=== PATIENT | female | born 1935 | race Caucasian/White ===

== ENCOUNTER 2016-05-08 08:56 | Observation (INO) | payer MEDICARE, BC ==
[~2016-05-08] VITALS: Ht 162.6 cm; Wt 74.0 kg
[~2016-05-08 08:56] MED LIST: FURO-109 PO
[2016-05-08] MEDS ORDERED: CEFTRIAXONE 1 GM/50 ML (PMX) 50 ML IVPB STA (09:28)
[2016-05-08] MEDS ORDERED: AZITHROMYCIN 250 MG TAB PO STA (09:28)
[2016-05-08] MEDS ORDERED: SOD CHLORIDE 0.9% 1,000 ML IV STA (09:28)
[2016-05-08 10:23] LABS: BASOPHILS % 0.5 % (0.0-2.0); EOSINOPHILS # 0.2 10^3/ul (0.0-0.5); EOSINOPHILS % 3.8 % (0.0-7.0); HEMATOCRIT 35.2 % (37.0-47.0); HEMOGLOBIN 11.6 g/dl (12.0-16.0); LYMPHOCYTES # 1.5 10^3/ul (0.8-2.9); LYMPHOCYTES % 25.8 % (15.0-51.0); MEAN PLATELET VOLUME 10.7 fl (7.4-10.4); MONOCYTE # 0.7 10^3/ul (0.3-0.9); MONOCYTES % 12.8 % (0.0-11.0); NEUTROPHIL # 3.3 10^3/ul (1.6-7.5); NEUTROPHILS % 57.1 % (39.0-77.0); PLATELET COUNT 170 10^3/UL (140-440); RED BLOOD COUNT 3.75 10^6/ul (4.20-5.40); RED CELL DISTRIBUTION WIDTH 16.8 % (11.5-14.5); UNCORRECTED WBC 5.8 10^3/ul (4.8-10.8); WHITE BLOOD COUNT 5.8 10^3/ul (4.8-10.8)
[2016-05-08 10:24] LABS: ALBUMIN 3.5 g/dl (3.3-4.9)
[2016-05-08 10:25] LABS: POTASSIUM 3.9 mmol/L (3.5-5.1)
[2016-05-08 10:26] LABS: CONDITION 1; LH ANALYZER COMMENTS 1
[2016-05-08 10:27] LABS: ALBUMIN/GLOBULIN RATIO 1.12; BILIRUBIN,INDIRECT 0.7 mg/dl (0-1.1); BILIRUBIN,TOTAL 0.7 mg/dl (0.2-1.3); CREATININE 0.98 mg/dl (0.44-1.00); TOTAL PROTEIN 6.6 g/dl (6.1-8.1)
[2016-05-08] MEDS ORDERED: AZITHROMYCIN 250 MG in SOD CHLORIDE 0.9% 250 ML IVPB SCH (10:30)
[2016-05-08] MEDS ORDERED: AZITHROMYCIN 500 MG in SOD CHLORIDE 0.9% 250 ML IVPB SCH (10:30)
[2016-05-08] MEDS ORDERED: RIVA20TA PO (10:34)
[2016-05-08] MEDS ORDERED: LOSA25TA5 PO (10:35)
[2016-05-08] MEDS ORDERED: CHOL100062 PO (10:35)
[2016-05-08] MEDS ORDERED: OMEG1CAP2 PO (10:36)
[2016-05-08] MEDS ORDERED: MAGN400T28 PO (10:37)
[2016-05-08] MEDS ORDERED: LEFL20TA18 PO (10:39)
[2016-05-08] MEDS ORDERED: ATOR10TA65 PO (10:39)
[2016-05-08] MEDS ORDERED: POTA8CAP PO (10:39)
[2016-05-08] MEDS ORDERED: CARV12.579 PO (10:39)
--- NOTE | 2016-05-08 11:00 | RADRPT ---
PROCEDURE: XR Chest. CLINICAL INDICATION: Dyspnea TECHNIQUE: Single frontal chest x-ray. COMPARISON: 03/14/2016 FINDINGS: No acute infiltrate, pleural effusion or pneumothorax is identified. There is stable mild to modera te cardiomegaly. Aortic atherosclerotic calcifications are noted. The osseous structures are unrem arkable. IMPRESSION: 1. Stable mild to moderate cardiomegaly. 2. Aortic atherosclerosis. 3. No significant interval change. RPTAT: QQ .Mainor Underwood MD, Date Time Electronically viewed and signed by .Mainor Underwood MD, on 05/08/2016 11:00 .R/
[2016-05-08] MEDS ORDERED: AZITHROMYCIN 500MG/NS (PMX) 250 ML IV ONE (12:00)
[2016-05-08] MEDS ORDERED: IPRATROPIUM (NEB) 0.5 MG/2.5 ML AMP NEB STA (12:54)
[2016-05-08] MEDS ORDERED: ALBUTEROL 0.5% (NEB) 2.5 MG/0.5 ML AMP NEB STA (12:54)
--- NOTE | 2016-05-08 14:18 | ERA ---
ER Documentation Chief Complaint Date/Time DATE: 05/08/16 TIME: 14:15 Chief Complaint from home c/o sob,cough HPI This is a 81-year-old female complains of cough for 4 days with occasional white productive sputum and some shortness of breath off-and-on without wheezing. Denies any chest pain. She does not have a fever no vomiting diarrhea but she does have general malaise weakness and lack of appetite. The patient's family said that she is seeing her primary care physician a few days ago and was told to go to the ER if she got any worse. ROS All systems reviewed and are negative except as per history of present illness. Medications Home Meds Active Scripts Furosemide* (Lasix*) 40 Mg Tablet, 40 MG PO DAILY, #20 TAB Prov:RE RODGERS 03/14/16 Reported Medications Carvedilol* (Carvedilol*) 12.5 Mg Tablet, 12.5 MG PO BID, #60 TAB 05/08/16 Leflunomide* (Leflunomide*) 20 Mg Tablet, 20 MG PO DAILY, #30 TAB 05/08/16 Atorvastatin Calcium (Atorvastatin Calcium) 10 Mg Tablet, 10 MG PO QHS, #30 TAB 05/08/16 Potassium Chloride* (Potassium Chloride*) 8 Meq Capsule.er, 8 MEQ PO DAILY, CAP 05/08/16 Magnesium Oxide* (Magnesium Oxide*) 400 Mg Tablet, 400 MG PO DAILY, TAB 05/08/16 Guthrie-3 Acid Ethyl Esters (Lovaza) 1 Gm Capsule, 2 GM PO DAILY, CAP 05/08/16 Losartan Potassium* (Losartan Potassium*) 25 Mg Tablet, 75 MG PO DAILY, TAB 05/08/16 Cholecalciferol* (Vitamin D3*) 1,000 Unit Tablet, 1000 UNIT PO DAILY, TAB 05/08/16 Rivaroxaban* (Xarelto*) 20 Mg Tablet, 20 MG PO WITH DINNER, TAB 05/08/16 Allergies Allergies: Coded Allergies: No Known Allergy (Unverified , 03/13/16) PMhx/Soc History of Surgery: No (bilateral cataract surgery 6-10 years ago) Anesthesia Reaction: No Hx Neurological Disorder: No Hx Respiratory Disorders: No Hx Cardiac Disorders: Yes (HTN, A-fib, ) Hx Psychiatric Problems: No Hx Alcohol Use: No Hx Substance Use: No Hx Tobacco Use: No Smoking Status: Never smoker FmHx Family History: No coronary disease Physical Exam Vitals Vital Signs Date Time Temp Pulse Resp B/P Pulse Ox O2 Delivery O2 Flow Rate FiO2 05/08/16 13:44 52 20 99 21 05/08/16 12:03 53 20 153/57 99 Room Air 05/08/16 09:06 98.1 50 18 131/70 99 Physical Exam Const: Well-developed, well-nourished, slightly ill-appearing Head: Atraumatic, normocephalic Eyes: Normal Conjunctiva, PERRLA, EOMI, normal sclera, no nystagmus ENT: Normal External Ears, Nose and Mouth, moist mucus membranes. Neck: Full range of motion. No meningismus, no lymphadenopathy. Resp: Clear to auscultation bilaterally, no wheezing, rhonchi, rales Cardio: Regular rate and rhythm, no murmurs, S1 S2 present Abd: Soft, non tender x 4, non distended. Normal bowel sounds, no guarding or rebound, no pulsitile abdominal masses or bruits Skin: No petechiae or rashes, no ecchymosis , no maculopapular rash Back: No midline or flank tenderness Ext: No cyanosis, or edema, FROM x 4, normal inspection, neurovascularly intact x 4 Neur: Awake and alert, STR 5/5 x 4, sensation intact x 4, no focal findings, cerebellum intact Psych: Normal Mood and Affect Result Diagram: 05/08/1649 05/08/16 0949 Results 24 hrs Laboratory Tests Test 05/08/16 09:49 Alanine Aminotransferase (ALT/SGPT) 36IU/L Albumin 3.5g/dl Albumin/Globulin Ratio 1.12 Alkaline Phosphatase 76IU/L Anion Gap 17 Aspartate Amino Transf (AST/SGOT) 36IU/L Basophils # 0.010^3/ul Basophils % 0.5% Blood Morphology Comment Blood Urea Nitrogen 40mg/dl Calcium Level 9.0mg/dl Carbon Dioxide Level 28mmol/L Chloride Level 103mmol/L Creatinine 0.98mg/dl Direct Bilirubin 0.00mg/dl Eosinophils # 0.210^3/ul Eosinophils % 3.8% Globulin 3.10g/dl Glucose Level 114mg/dl Hematocrit 35.2% Hemoglobin 11.6g/dl Indirect Bilirubin 0.7mg/dl Lymphocytes # 1.510^3/ul Lymphocytes % 25.8% Mean Corpuscular Hemoglobin 31.0pg Mean Corpuscular Hemoglobin Concent 33.0g/dl Mean Corpuscular Volume 94.0fl Mean Platelet Volume 10.7fl Monocytes # 0.710^3/ul Monocytes % 12.8% Neutrophils # 3.310^3/ul Neutrophils % 57.1% Nucleated Red Blood Cells # 0.010^3/ul Nucleated Red Blood Cells % 0.0/100WBC Platelet Count 62358^3/UL Potassium Level 3.9mmol/L Red Blood Count 3.7510^6/ul Red Cell Distribution Width 16.8% Sodium Level 144mmol/L Total Bilirubin 0.7mg/dl Total Protein 6.6g/dl White Blood Count 5.810^3/ul Current Medications Medications (Trade) Dose Ordered Sig/Gen Route PRN Reason Start Time Stop Time Status Last Admin Dose Admin Sodium Chloride (NS) 1,000 ml @ 1,000 mls/hr Q1H STAT IV 05/08/16 09:28 05/08/16 10:27 DC 05/08/16 09:58 Azithromycin 500 mg 500 mg ONCE STAT PO 05/08/16 09:28 05/08/16 09:29 Cancel Ceftriaxone Sodium 50 ml @ 100 mls/hr ONCE STAT IVPB 05/08/16 09:28 05/08/16 09:57 DC 05/08/16 09:58 Azithromycin 250 mg/Sodium Chloride 250 ml @ 250 mls/hr ONCE IVPB 05/08/16 10:30 05/08/16 10:30 DC Azithromycin 500 mg/Sodium Chloride 250 ml @ 250 mls/hr ONCE IVPB 05/08/16 10:30 05/08/16 11:29 DC Azithromycin (Zithromax 500mg/ NS (Pmx)) 250 ml @ 250 mls/hr ONCE ONCE IV 05/08/16 12:00 05/08/16 12:59 DC 05/08/16 11:49 Albuterol (Proventil 0.5% (Neb)) 7.5 mg ONCE STAT NEB 05/08/16 12:54 05/08/16 12:55 DC 05/08/16 13:43 Ipratropium [place] (Atrovent 0.02% (Neb)) 0.5 mg ONCE STAT NEB 05/08/16 12:54 05/08/16 12:55 DC 05/08/16 13:43 Procedures/MDM PROCEDURE: XR Chest. CLINICAL INDICATION: Dyspnea TECHNIQUE: Single frontal chest x-ray. COMPARISON: 03/14/2016 FINDINGS: No acute infiltrate, pleural effusion or pneumothorax is identified. There is stable mild to moderate cardiomegaly. Aortic atherosclerotic calcifications are noted. The osseous structures are unremarkable. IMPRESSION: 1. Stable mild to moderate cardiomegaly. 2. Aortic atherosclerosis. 3. No significant interval change. RPTAT: QQ .Mainor Underwood MD, MD Date Time Electronically viewed and signed by .Mainor Underwood MD, MD on 05/08/2016 11: 00 .R/ CC: OFELIA EVANS DO Patient was given some breathing treatments and feels a little bit better. I did speak with her primary care physician who wants to admit her to the hospital for a few days. She is a complicated medical history and she could deteriorate. I feel she has bronchitis at this time. Departure Diagnosis: Primary Impression: Shortness of breath Additional Impression: Bronchitis Condition: Stable OFELIA EVANS DO May 08, 2016 14:18
[2016-05-08] MEDS ORDERED: ONDANSETRON 4 MG INJ IV PRN (14:30)
[2016-05-08] MEDS ORDERED: ACETAMINOPHEN 325 MG TAB PO PRN (14:30)
[2016-05-08 17:19] LABS: IRON 52 ug/dl (35-150)
[2016-05-08 17:28] LABS: TOTAL IRON BINDING CAPACITY 293 ug/dl (241-421)
[2016-05-08 17:41] LABS: TROPONIN-I 0.035 ng/ml (0.00-0.12)
[2016-05-08] MEDS ORDERED: LORAZEPAM 2 MG INJ IV PRN (19:00)
[2016-05-08] MEDS ORDERED: DOCUSATE SODIUM 100 MG CAP PO PRN (19:00)
[2016-05-08] MEDS ORDERED: MAGNESIUM HYDROXIDE 30ML CUP PO PRN (19:00)
[2016-05-08] MEDS ORDERED: morphine 2 MG INJ IV PRN (19:00)
[2016-05-08] MEDS ORDERED: ZOLPIDEM 5 MG TAB PO PRN (19:00)
[2016-05-08] MEDS ORDERED: NACL 0.9% 3 ML SYG IV SCH (19:00)
[2016-05-08] MEDS ORDERED: NITROGLYCERIN (SL) 0.4 MG TAB SL PRN (19:00)
--- NOTE | 2016-05-08 19:23 | HP ---
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 HPI/ROS Admit Date/Time Admit Date/Time Worsening of sob.Inability to walk. Getting tired very easily. ROS Constitutional: chills, fatigue, nausea, poor po, No diaphoresis, No disoriented, No febrile, No improved, No no complaints, No other, No weight change Eyes: other, No discharge, No no complaints, No pain, No redness, No visual change ENT: congestion, No bleeding, No discharge, No dysphagia, No no complaints, No other, No pain , No sore throat Respiratory: cough, pleuritic pain, shortness of breath, No no complaints, No other, No pain, No sputum, No wheezing Cardiovascular: chest pain, edema, lightheadedness, orthopenea, palpitations, paroxysmal nocturnal dyspnea Gastrointestinal: nausea, passing stool, No blood, No constipation, No decreased appetite, No diarrhea, No flatus, No no complaints, No other, No pain, No vomiting Genitourinary: dysuria, other (incontinence.), No bleeding, No discharge, No flank pain, No hematuria, No no complaints Musculoskeletal: back pain, bone/joint pain, neck pain, other (RA changes.), No no complaints, No restricted range of motion, No swelling Skin: pruritis, No bruising, No erythema, No laceration, No no complaints, No other, No rash , No skin lesions Neurologic: confusion, dizziness, headache, No focal-weakness, No no complaints, No other, No seizure, No syncope Endocrine: dry skin, polydypsia, weight change Lymphatic: No adenopathy, No lymphadema, No no complaints, No other, No tender nodes Psychological: anxiety, confusion, depression, other (memory impairment.), No nl mood/affect, No no complaints, No suicidal Immunologic: immunodeficiency, pruritis, No no complaints, No other, No rhinitis, No urticaria PMH/Family/Social Past Medical History Medical History: angina, congestive heart failure, coronary artery disease, diverticulitis, GERD, high cholesterol, hypertension, renal disease, urinary tract infection, other (RA.) Family History Significant Family History: heart disease, hypertension, renal disease Social History Alcohol Use: none Smoking Status: Never smoker Drug Use: none Exam/Review of Systems Vital Signs Vitals Vital Signs Date Time Temp Pulse Resp B/P Pulse Ox O2 Delivery O2 Flow Rate FiO2 05/08/16 17:40 54 18 158/86 98 Room Air 05/08/16 13:44 21 05/08/16 09:06 98.1 Exam Constitutional: alert, distress, frail, oriented, well developed, No non-verbal, No other Psych: anxiety, confusion, depression, other (got exhousted after taking care of a .), No nl mood/affect, No no complaints, No suicidal Head: atraumatic, No hematomas, No lacerations, No normocephalic, No other Eyes: EOMI, PERRL, nl lids, other (pale conjunctivas.) ENMT: tympanic membranes (hearing impairment with sclerotic TM.), No intubated, No mucosa pink and moist, No nl external ears & nose, No nl lips & teeth, No nl nasal mucosa & septum, No other Neck: bruits, jvd, nuchal rigidity, No masses, No non-tender, No other, No supple, No thyromegaly Respiratory: congested cough, diminished breath sounds, No clear to auscultation, No crackles/rales, No intercostal retraction, No labored breathing, No normal air movement, No other, No respirations, No tactile fremitus, No wheezing Cardiovascular: bruits, edema, nl pulses, systolic murmur Gastrointestinal: distended, nl liver, spleen, soft, No ascites, No bowel sounds, No firm, No hepatomegaly, No mass, No non-tender , No other, No rebound or guarding, No splenomegaly, No surgical scars, No tender Genitourinary - Female: nl external genitalia, other (refused examination.) Musculoskeletal: joint tenderness, muscle tone, muscle weakness, other (Sever decrease of muscular straight.), range of motion Extremities: calf tenderness, edema, tenderness Neurological: BURR GRINDER II-XII intact (except cn x 8.), confused, lethargic, numbness, other (forgetful.) Skin: diaphoresis Labs Result Diagram: 05/08/1694805/08/16948 Medications Medications Current Medications Docusate Sodium (Colace) 100 mg Q12H PRN PO CONSTIPATION; Start 05/08/16 at 19: 00; Status UNV Magnesium Hydroxide (Milk Of Mag) 30 ml DAILY PRN PO CONSTIPATION; Start at 19:00; Status UNV Zolpidem Tartrate (Ambien) 5 mg QHS PRN PO SLEEP; Start 05/08/16 at 19:00; Status UNV Enoxaparin Sodium (Lovenox) 40 mg DAILY SC ; Start 05/08/16 at 19:00; Status UNV Lorazepam (Ativan) 0.5 mg Q6H PRN IV ANXIETY; Start 05/08/16 at 19:00; Status UNV Spironolactone (Aldactone) 12.5 mg BID PO ; Start 05/08/16 at 21:00; Status UNV Nitroglycerin (Nitroglycerin (Sl Tab) 0.4 Mg) 1 tab Q5M PRN SL CHEST PAIN; Start 05/08/16 at 19:00; Status UNV Isosorbide Dinitrate (Isordil) 10 mg TID PO ; Start 05/08/16 at 21:00; Status UNV Pantoprazole (Protonix Tab) 40 mg DAILY@06 PO ; Start 05/09/16 at 06:00; Status UNV Eye Lubricant (Artificial Tears Oph) 1 drop TID BOTH EYES ; Start 05/08/16 at 21: 00; Status UNV Morphine Sulfate (morphine) 2 mg Q2H PRN IV PAIN LEVEL 4-6; Start 05/08/16 at 19 :00; Status UNV Metoprolol Tartrate (Lopressor) 25 mg BID ONCE PO ; Start 05/08/16 at 21:00; Stop 05/08/16 at 21:01; Status UNV Losartan Potassium (Cozaar) 25 mg BID ONCE PO ; Start 05/08/16 at 21:00; Stop at 21:01; Status UNV WALI LIU MD May 08, 2016 19:23
[2016-05-08 19:31] LABS: D-DIMER 596.99 ng/ml (<460)
[2016-05-08] MEDS: SPIRONOLACTONE 25 MG TAB PO SCH (20:41)
[2016-05-08] MEDS: LOSARTAN 25 MG TAB PO SCH (20:42)
[2016-05-08] MEDS: METOLAZONE 2.5 MG TAB PO SCH (20:43)
[2016-05-08] MEDS: METOPROLOL 25 MG TAB PO SCH (20:43)
[2016-05-08] MEDS: ISOSORBIDE DINITRATE 10 MG TAB PO SCH (20:43)
[2016-05-08] MEDS: ARTIFICIAL TEARS 15 ML OPH BOTH EYES SCH (20:47)
[2016-05-08] MEDS: ENOXAPARIN 40 MG/0.4 ML SYG SC SCH (20:47)
[2016-05-08 20:58] VITALS: TEMP 98.5
[2016-05-08 21:00] VITALS: BP 151/70; PULSE 54; RESP 18; Ht 162.6 cm; Wt 74.0 kg
[2016-05-08 21:06] VITALS: PULSE 50
[2016-05-09] VITALS (12 sets, daily range): BP systolic 143–161; BP diastolic 79–89; PULSE 40–74; RESP 18–22
[2016-05-09 03:03] LABS: AADO2 Arterial 35.8 mmHg (7.0-24.0); Arterial Base Excess -0.3 mmol/L (-3.0-3); Arterial COHb 1.1 % (0.0-3.0); Arterial Fraction of Oxyhgb 90.1 % (93.0-99.0); Arterial HCO3 24.6 mmol/L (22.0-26.0); Arterial MetHb 0.3 % (0.0-1.5); Arterial Total Hemglobin 12.8 g/dl (12.0-18.0); MODE ROOM AIR
[2016-05-09] MEDS: PANTOPRAZOLE (EC) 40 MG TAB PO SCH (05:26)
[2016-05-09] MEDS: METOLAZONE 2.5 MG TAB PO SCH ×2 (05:27→18:01)
[2016-05-09 07:22] LABS: BASOPHIL # 0.1 10^3/ul (0.0-0.1); BASOPHILS % 0.9 % (0.0-2.0); EOSINOPHILS # 0.2 10^3/ul (0.0-0.5); EOSINOPHILS % 3.5 % (0.0-7.0); HEMATOCRIT 36.1 % (37.0-47.0); HEMOGLOBIN 11.8 g/dl (12.0-16.0); LYMPHOCYTES # 1.7 10^3/ul (0.8-2.9); LYMPHOCYTES % 28.5 % (15.0-51.0); MEAN CORPUSCULAR HEMOGLOBIN 30.9 pg (29.0-33.0); MEAN CORPUSCULAR HGB CONC 32.8 g/dl (32.0-37.0); MEAN CORPUSCULAR VOLUME 94.4 fl (82.0-101.0); MEAN PLATELET VOLUME 11.2 fl (7.4-10.4); MONOCYTE # 0.8 10^3/ul (0.3-0.9); MONOCYTES % 12.5 % (0.0-11.0); NEUTROPHIL # 3.4 10^3/ul (1.6-7.5); NEUTROPHILS % 54.6 % (39.0-77.0); PLATELET COUNT 170 10^3/UL (140-440); RED BLOOD COUNT 3.83 10^6/ul (4.20-5.40); UNCORRECTED WBC 6.1 10^3/ul (4.8-10.8); WHITE BLOOD COUNT 6.1 10^3/ul (4.8-10.8)
[2016-05-09 07:35] LABS: CONDITION 1; LH ANALYZER COMMENTS 1; SUSPECT 1
[2016-05-09 07:48] LABS: ALBUMIN 3.5 g/dl (3.3-4.9)
[2016-05-09 07:51] LABS: ALBUMIN/GLOBULIN RATIO 1.12; BILIRUBIN,INDIRECT 0.6 mg/dl (0-1.1); BILIRUBIN,TOTAL 0.6 mg/dl (0.2-1.3); CREATININE 0.84 mg/dl (0.44-1.00); TOTAL PROTEIN 6.6 g/dl (6.1-8.1)
[2016-05-09 07:52] LABS: CALCIUM 9.2 mg/dl (8.4-10.2); MAGNESIUM 1.8 mg/dl (1.7-2.5)
--- NOTE | 2016-05-09 07:56 | PN ---
Date/Time of Note Date/Time of Note DATE: 05/09/16 TIME: 07:53 Assessment/Plan VTE Prophylaxis VTE Prophylaxis Intervention: ambulation, anti-embolic stocking VTE Contraindication Reason: peripheral vascular disease Lines/Catheters IV Catheter Type (from Nrsg): Saline Lock Urinary Cath still in place: No Reason Cath still needed: urinary retention Assessment/Plan Assessment/Plan 1)I5042; Chronic combined systolic (congestive) and diastolic (congestive) heart failure-mildly improved 2)I110; Hypertensive heart disease with heart failure -better controlled 3)R001; Bradycardia, unspecified 4)G309; Alzheimer's disease, unspecified 5)D638; ANEMIA 6)M0680; Other specified rheumatoid arthritis, unspecified site 7)R601; Generalized edema 8)R0602; Shortness of breath 9)R32; Unspecified urinary incontinence 11)F419; Anxiety disorder, unspecified 12)M35026; Tension-type headache, unspecified, not intractable 13)N913-Dcyicv pectoris, unspecified 14)D172-MJF Subjective 24 Hr Interval Summary Free Text/Dictation SOB mildly improved. Constitutional: chills, disoriented, poor po, requiring O2, No diaphoresis, No febrile, No improved, No no complaints, No other, No requiring IVF Eyes: No discharge, No no complaints, No other, No pain, No redness, No visual change ENT: dysphagia, No bleeding, No congestion, No discharge, No no complaints, No other, No pain , No sore throat Respiratory: pain, shortness of breath, No cough, No no complaints, No other, No pleuritic pain, No sputum, No wheezing Cardiovascular: chest pain, edema, lightheadedness, orthopenea, palpitations, paroxysmal nocturnal dyspnea, No no complaints, No other Gastrointestinal: constipation, flatus, nausea, pain, passing stool, No blood, No decreased appetite, No diarrhea, No no complaints, No other, No vomiting Genitourinary: flank pain, No bleeding, No discharge, No dysuria, No hematuria, No no complaints, No other Musculoskeletal: back pain, bone/joint pain, neck pain, No no complaints, No other, No restricted range of motion, No swelling Skin: pruritis, No bruising, No erythema, No laceration, No no complaints, No other, No rash , No skin lesions Neurologic: confusion, dizziness, headache, No focal-weakness, No no complaints, No other, No seizure, No syncope Endocrine: dry skin, temp intolerance, No no complaints, No other, No polydypsia, No polyuria Lymphatic: adenopathy, tender nodes, No lymphadema, No no complaints, No other Psychological: anxiety, depression, No confusion, No nl mood/affect, No no complaints, No other, No suicidal Immunologic: immunodeficiency Exam/Review of Systems Vital Signs Vitals Vital Signs Date Time Temp Pulse Resp B/P Pulse Ox O2 Delivery O2 Flow Rate FiO2 05/09/16 04:54 98.1 64 22 144/84 100 05/09/16 03:06 2.0 28 05/08/16 21:00 Room Air Results Result Diagram: 05/09/16 0640 05/08/16 0949 Results 24 hrs Laboratory Tests Test 05/08/16 09:49 05/08/16 15:00 05/08/16 21:00 05/09/16 06:40 Alanine Aminotransferase (ALT/SGPT) 36 39 Albumin 3.5 3.5 Albumin/Globulin Ratio 1.12 1.12 Alkaline Phosphatase 76 85 Anion Gap 17 H 18 H Aspartate Amino Transf (AST/SGOT) 36 37 B-Type Natriuretic Peptide 8460 H Basophils # 0.0 0.1 Basophils % 0.5 0.9 Blood Morphology Comment Blood Urea Nitrogen 40 H 30 H Calcium Level 9.0 9.2 Carbon Dioxide Level 28 25 Chloride Level 103 104 Creatinine 0.98 0.84 Direct Bilirubin 0.00 0.00 Eosinophils # 0.2 0.2 Eosinophils % 3.8 3.5 Globulin 3.10 3.10 Glucose Level 114 113 Hematocrit 35.2 L 36.1 L Hemoglobin 11.6 L 11.8 L Indirect Bilirubin 0.7 0.6 Iron Level 52 Lymphocytes # 1.5 1.7 Lymphocytes % 25.8 28.5 Mean Corpuscular Hemoglobin 31.0 30.9 Mean Corpuscular Hemoglobin Concent 33.0 32.8 Mean Corpuscular Volume 94.0 94.4 Mean Platelet Volume 10.7 H 11.2 H Monocytes # 0.7 0.8 Monocytes % 12.8 H 12.5 H Neutrophils # 3.3 3.4 Neutrophils % 57.1 54.6 Nucleated Red Blood Cells # 0.0 0.0 Nucleated Red Blood Cells % 0.0 0.0 Percent Iron Saturation 18 L Platelet Count 170 170 Potassium Level 3.9 4.0 Red Blood Count 3.75 L 3.83 L Red Cell Distribution Width 16.8 H 17.0 H Sodium Level 144 143 Total Bilirubin 0.7 0.6 Total Iron Binding Capacity 293 Total Protein 6.6 6.6 Troponin I 0.035 White Blood Count 5.8 6.1 D-Dimer 596.99 H D-Dimer Comment Arterial Blood HCO3 24.6 Arterial Blood Base Excess -0.3 Arterial Blood Oxygen Saturation 91.4 L Javon Test N/A Arterial Blood Gas Puncture Site LB Arterial Blood Carboxyhemoglobin 1.1 Arterial Blood Date Drawn 05/09/2016 2:51:43 AM Arterial Blood Methemoglobin 0.3 Arterial Blood pCO2 (Temp correct) 41.0 Arterial Blood pH (Temp corrected) 7.396 Arterial Blood pO2 (Temp corrected) 64.8 L Blood Gas A-a O2 Differential 35.8 H Blood Gas Actual Respiration Rate 20 Blood Gas Modality ROOM AIR Blood Gas Notified Time 05/09/2016 3:02:51 AM Blood Gas Notified Whom RTR Blood Gas Specimen Source Blood arterial Blood Gas Temperature 37.0 FiO2 21.0 Oxyhemoglobin Percent 90.1 L Total Hemoglobin 12.8 Cholesterol Level 135 Cholesterol/HDL Ratio 3.0 Free Thyroxine Index Pending HDL Cholesterol 44 LDL Cholesterol, Calculated 71 Magnesium Level 1.8 Phosphorus Level 4.0 Thyroxine (T4) Pending Triglycerides Level 102 Triiodothyronine (T3) Uptake Pending Medications Medications Current Medications Docusate Sodium (Colace) 100 mg Q12H PRN PO CONSTIPATION; Start 05/08/16 at 19: 00 Magnesium Hydroxide (Milk Of Mag) 30 ml DAILY PRN PO CONSTIPATION; Start at 19:00 Zolpidem Tartrate (Ambien) 5 mg QHS PRN PO SLEEP; Start 05/08/16 at 19:00 Enoxaparin Sodium (Lovenox) 40 mg DAILY SC Last administered on 05/08/16t 20:47 ; Admin Dose 40 MG; Start 05/08/16 at 19:00 Lorazepam (Ativan) 0.5 mg Q6H PRN IV ANXIETY; Start 05/08/16 at 19:00 Spironolactone (Aldactone) 12.5 mg BID PO Last administered on 05/08/16 20:41; Admin Dose 12.5 MG; Start 05/08/16 at 21:00 Nitroglycerin (Nitroglycerin (Sl Tab) 0.4 Mg) 1 tab Q5M PRN SL CHEST PAIN; Start 05/08/16 at 19:00 Isosorbide Dinitrate (Isordil) 10 mg TID PO Last administered on 05/08/16 20:43 ; Admin Dose 10 MG; Start 05/08/16 at 21:00 Pantoprazole (Protonix Tab) 40 mg DAILY@06 PO Last administered on 05/09/16 05: 26; Admin Dose 40 MG; Start 05/09/16 at 06:00 Eye Lubricant (Artificial Tears Oph) 1 drop TID BOTH EYES Last administered on 05/08/16 20:47; Admin Dose 1 DROP; Start 05/08/16 at 21:00 Morphine Sulfate (morphine) 2 mg Q2H PRN IV PAIN LEVEL 4-6; Start 05/08/16 at 19 :00 Metoprolol Tartrate (Lopressor) 25 mg BID PO Last administered on 05/08/16 20: 43; Admin Dose 25 MG; Start 05/08/16 at 21:00 Losartan Potassium (Cozaar) 25 mg BID PO Last administered on 05/08/16 20:42; Admin Dose 25 MG; Start 05/08/16 at 21:00 WALI LIU MD May 09, 2016 07:56
[2016-05-09 08:04] LABS: T3 UPTAKE 45.4 % (23.5-40.5)
[2016-05-09] MEDS ORDERED: METHYLPREDNISOLONE 125 MG INJ IM ONE (08:30)
[2016-05-09] MEDS: METOPROLOL 25 MG TAB PO SCH ×2 (09:00→21:13)
[2016-05-09] MEDS ORDERED: METHYLPREDNISOLONE (10 MG/ML) IV SYG IV SCH (09:00)
--- NOTE | 2016-05-09 09:21 | RADRPT ---
PROCEDURE: US venous lower extremities bilaterally. CLINICAL INDICATION: Bilateral lower extremity swelling. Elevated D-dimer. TECHNIQUE: Multiple longitudinal and transverse images of the bilateral lower extremity veins were obtained with soto scale and color Doppler imaging. 2D grayscale imaging with compression, color D oppler flow, and augmentation was performed. The calf veins were interrogated as well. COMPARISON: None available. FINDINGS: The common femoral, superficial femoral, and popliteal veins are compressible bilaterally. There is normal color Doppler flow within the vessels. Normal waveforms are visualized and there is normal response to augmentation. The calf veins are visualized and are equally unremarkable. IMPRESSION: 1. No evidence of deep vein thrombosis in the lower extremities bilaterally. RPTAT: GG .Kartik Adorno MD, MD Date Time Electronically viewed and signed by .Kartik Adorno MD, on 05/09/2016 09:21 .P/
[2016-05-09] MEDS: ARTIFICIAL TEARS 15 ML OPH BOTH EYES SCH ×3 (09:33→21:13)
[2016-05-09] MEDS: SPIRONOLACTONE 25 MG TAB PO SCH ×2 (09:33→21:10)
[2016-05-09] MEDS: POTASSIUM CHLORIDE (SR) 10 MEQ TAB PO SCH ×2 (09:34→21:13)
[2016-05-09] MEDS: LOSARTAN 25 MG TAB PO SCH ×2 (09:34→21:10)
[2016-05-09] MEDS: ISOSORBIDE DINITRATE 10 MG TAB PO SCH ×3 (09:35→21:11)
[2016-05-09] MEDS: ENOXAPARIN 40 MG/0.4 ML SYG SC SCH (09:37)
--- NOTE | 2016-05-09 10:23 | CONS ---
Date/Time of Note Date/Time of Note DATE: 05/09/16 TIME: 10:23 Consultation Date/Type/Reason Admit Date/Time May 08, 2016 at 14:19 Initial Consult Date Exam/Review of Systems Vital Signs Vitals Vital Signs Date Time Temp Pulse Resp B/P Pulse Ox O2 Delivery O2 Flow Rate FiO2 05/09/16 08:29 50 05/09/16 07:51 98.1 18 157/89 93 05/09/16 03:06 2.0 28 05/08/16 21:00 Room Air Results Result Diagram: 05/09/16 0640 05/09/16 0640 Results 24 hrs Laboratory Tests Test 05/08/16 15:00 05/08/16 21:00 05/09/16 06:40 D-Dimer 596.99 H D-Dimer Comment Arterial Blood HCO3 24.6 Arterial Blood Base Excess -0.3 Arterial Blood Oxygen Saturation 91.4 L Javon Test N/A Arterial Blood Gas Puncture Site LB Arterial Blood Carboxyhemoglobin 1.1 Arterial Blood Date Drawn 05/09/2016 2:51:43 AM Arterial Blood Methemoglobin 0.3 Arterial Blood pCO2 (Temp correct) 41.0 Arterial Blood pH (Temp corrected) 7.396 Arterial Blood pO2 (Temp corrected) 64.8 L Blood Gas A-a O2 Differential 35.8 H Blood Gas Actual Respiration Rate 20 Blood Gas Modality ROOM AIR Blood Gas Notified Time 05/09/2016 3:02:51 AM Blood Gas Notified Whom RTR Blood Gas Specimen Source Blood arterial Blood Gas Temperature 37.0 FiO2 21.0 Oxyhemoglobin Percent 90.1 L Total Hemoglobin 12.8 Alanine Aminotransferase (ALT/SGPT) 39 Albumin 3.5 Albumin/Globulin Ratio 1.12 Alkaline Phosphatase 85 Anion Gap 18 H Aspartate Amino Transf (AST/SGOT) 37 Basophils # 0.1 Basophils % 0.9 Blood Morphology Comment Blood Urea Nitrogen 30 H Calcium Level 9.2 Carbon Dioxide Level 25 Chloride Level 104 Cholesterol Level 135 Cholesterol/HDL Ratio 3.0 Creatinine 0.84 Direct Bilirubin 0.00 Eosinophils # 0.2 Eosinophils % 3.5 Free Thyroxine Index 2.95 Globulin 3.10 Glucose Level 113 HDL Cholesterol 44 Hematocrit 36.1 L Hemoglobin 11.8 L Hemoglobin A1c 5.9 Indirect Bilirubin 0.6 LDL Cholesterol, Calculated 71 Lymphocytes # 1.7 Lymphocytes % 28.5 Magnesium Level 1.8 Mean Corpuscular Hemoglobin 30.9 Mean Corpuscular Hemoglobin Concent 32.8 Mean Corpuscular Volume 94.4 Mean Platelet Volume 11.2 H Monocytes # 0.8 Monocytes % 12.5 H Neutrophils # 3.4 Neutrophils % 54.6 Nucleated Red Blood Cells # 0.0 Nucleated Red Blood Cells % 0.0 Phosphorus Level 4.0 Platelet Count 170 Potassium Level 4.0 Red Blood Count 3.83 L Red Cell Distribution Width 17.0 H Sodium Level 143 Thyroxine (T4) 6.5 Total Bilirubin 0.6 Total Protein 6.6 Triglycerides Level 102 Triiodothyronine (T3) Uptake 45.4 H White Blood Count 6.1 Medications Medications Current Medications Docusate Sodium (Colace) 100 mg Q12H PRN PO CONSTIPATION; Start 05/08/16 at 19: 00 Magnesium Hydroxide (Milk Of Mag) 30 ml DAILY PRN PO CONSTIPATION; Start at 19:00 Zolpidem Tartrate (Ambien) 5 mg QHS PRN PO SLEEP; Start 05/08/16 at 19:00 Enoxaparin Sodium (Lovenox) 40 mg DAILY SC Last administered on 05/09/16 09:37 ; Admin Dose 40 MG; Start 05/08/16 at 19:00 Lorazepam (Ativan) 0.5 mg Q6H PRN IV ANXIETY; Start 05/08/16 at 19:00 Spironolactone (Aldactone) 12.5 mg BID PO Last administered on 05/09/16 09:33; Admin Dose 12.5 MG; Start 05/08/16 at 21:00 Nitroglycerin (Nitroglycerin (Sl Tab) 0.4 Mg) 1 tab Q5M PRN SL CHEST PAIN; Start 05/08/16 at 19:00 Isosorbide Dinitrate (Isordil) 10 mg TID PO Last administered on 05/09/16 09:35 ; Admin Dose 10 MG; Start 05/08/16 at 21:00 Pantoprazole (Protonix Tab) 40 mg DAILY@06 PO Last administered on 05/09/16 05: 26; Admin Dose 40 MG; Start 05/09/16 at 06:00 Eye Lubricant (Artificial Tears Oph) 1 drop TID BOTH EYES Last administered on 05/09/16 09:33; Admin Dose 1 DROP; Start 05/08/16 at 21:00 Morphine Sulfate (morphine) 2 mg Q2H PRN IV PAIN LEVEL 4-6; Start 05/08/16 at 19 :00 Metoprolol Tartrate (Lopressor) 25 mg BID PO Last administered on 05/08/16 20: 43; Admin Dose 25 MG; Start 05/08/16 at 21:00 Losartan Potassium (Cozaar) 25 mg BID PO Last administered on 05/09/16 09:34; Admin Dose 25 MG; Start 05/08/16 at 21:00 Methylprednisolone Sodium Succinate (Solu-Medrol) 125 mg ONCE ONCE IM ; Start 05/09/16 at 08:30; Stop 05/09/16 at 08:31; Status UNV Methylprednisolone Sodium Succinate (Solu-Medrol) 60 mg ONCE ONCE IM ; Start at 08:30; Stop 05/10/16 at 08:31; Status UNV Methylprednisolone Sodium Succinate 40 mg 40 mg AM IV ; Start 05/09/16 at 09:00; Status UNV Azithromycin (Zithromax 500mg/ NS (Pmx)) 250 ml @ 250 mls/hr Q24H IVPB ; Start 05/09/16 at 08:30; Stop 05/11/16 at 09:00 Potassium Chloride (Klor-Con 10) 10 meq BID PO Last administered on 05/09/16 09 :34; Admin Dose 10 MEQ; Start 05/09/16 at 09:00 Miscellaneous Information (*Order Clarification Bulletin) MEDICATION REQUIRES CLARIFICATION: Q8H XX ; Start 05/09/16 at 09:30 RASTA EDUARDO MD May 09, 2016 10:23
[2016-05-09] MEDS ORDERED: [UNRECOGNIZED DRUG - REMARK] XX SCH (11:00)
[2016-05-09] MEDS: AZITHROMYCIN 500MG/NS (PMX) 250 ML IVPB SCH (12:15)
[2016-05-09 13:04] LABS: RETICULOCYTE COUNT % 1.9 % (0.5-1.5)
[2016-05-09 13:14] LABS: LACTATE DEHYDROGENASE 447 IU/L (313-618)
[2016-05-09 13:15] LABS: URIC ACID 6.1 mg/dl (3.1-7.9)
[2016-05-09 13:51] LABS: FERRITIN 18.8 ng/ml (11.1-264.0)
[2016-05-09] MEDS: ALBUTEROL 0.083% (NEB) 2.5 MG/3 ML AMP HHN SCH ×2 (14:18→19:49)
[2016-05-09] MEDS: IPRATROPIUM (NEB) 0.5 MG/2.5 ML AMP HHN SCH ×2 (14:18→19:49)
[2016-05-09 14:24] LABS: FOLATE > 20.0 ng/ml (2.8-20.0)
[2016-05-09 15:40] LABS: CARCINOEMBRYONIC ANTIGEN 11.5 ng/ml (0.0-5.0)
--- NOTE | 2016-05-09 16:16 | CONS ---
DATE OF ADMISSION: 05/08/2016 DATE OF CONSULTATION: 05/09/2016 REASON FOR CONSULT: Shortness of breath. Thank you, Dr. Hernandez, for this consultation. HISTORY OF PRESENT ILLNESS: This is a 81-year-old lady with no significant past medical history oth er than congestive cardiac failure and mild dementia, came in with a several-day history of increasi ng shortness of breath, cough, congestion, and subjective fever. No orthopnea, no PND, no hemoptysi s, hematemesis. Admission chest x-ray was unremarkable. She had a normal white cell count. Lizzette owens is a poor historian. She has underlying history of dementia, per chart. PAST MEDICAL HISTORY: Systolic and diastolic heart failure, mild dementia, chronic anemia, history of bradycardia. MEDICATIONS: Per chart. ALLERGIES: NONE. SOCIAL HISTORY: Nonsmoker, no alcohol, no history of drug use. FAMILY HISTORY: Noncontributory. SYSTEMS REVIEW: A 12-point review of systems unable to perform. PHYSICAL EXAMINATION: GENERAL: Elderly-appearing [place] lady, comfortable at rest, no acute distress. VITAL SIGNS: Currently afebrile, pulse is 70, blood pressure 150/89, O2 saturation 96% on 2 L nasal cannula. NECK: Supple. No JVD or lymphadenopathy. CARDIAC: S1, S2, no added sounds or murmurs. CHEST: Diminished air entry bilaterally. ABDOMEN: Soft, nontender. No guarding or rebound. EXTREMITIES: No cyanosis, clubbing, edema. NEUROLOGIC: Grossly intact. No focal deficits. LABORATORY DATA: White count 6.1, hemoglobin 11.8, platelets within normal limits. BNP 8460, BUN 3 0, creatinine 0.84. ABG: pH 7.39, pCO2 of 41, pO2 64 on room air. Chest x-ray shows increased vas cular congestion. IMPRESSION AND PLAN: 1. Dyspnea, likely secondary to mild congestive cardiac failure. 2. Possible acute bronchitis. 3. History of dementia. 4. Incomplete data. The patient will require: 1. Continued steroids. 2. Bronchodilators. 3. Additional Lasix. 4. Additional diuretics. 5. DVT and GI prophylaxis. Dictated By: ISATU AVILES/ZAID Conf#: [id number] DID#: [id number]
[2016-05-10] VITALS (15 sets, daily range): BP systolic 139–166; BP diastolic 65–96; PULSE 35–71; RESP 16–21
[2016-05-10] MEDS: METOLAZONE 2.5 MG TAB PO SCH ×2 (05:24→17:57)
[2016-05-10] MEDS: PANTOPRAZOLE (EC) 40 MG TAB PO SCH (05:24)
[2016-05-10] MEDS: ALBUTEROL 0.083% (NEB) 2.5 MG/3 ML AMP HHN SCH ×3 (07:38→21:04)
[2016-05-10] MEDS: IPRATROPIUM (NEB) 0.5 MG/2.5 ML AMP HHN SCH ×3 (07:38→21:04)
[2016-05-10 08:30] LABS: BASOPHILS % 0.5 % (0.0-2.0); EOSINOPHILS # 0.3 10^3/ul (0.0-0.5); EOSINOPHILS % 4.2 % (0.0-7.0); HEMATOCRIT 36.4 % (37.0-47.0); HEMOGLOBIN 11.9 g/dl (12.0-16.0); LYMPHOCYTES # 1.9 10^3/ul (0.8-2.9); LYMPHOCYTES % 28.1 % (15.0-51.0); MEAN CORPUSCULAR HEMOGLOBIN 30.8 pg (29.0-33.0); MEAN CORPUSCULAR HGB CONC 32.7 g/dl (32.0-37.0); MEAN CORPUSCULAR VOLUME 94.4 fl (82.0-101.0); MEAN PLATELET VOLUME 10.8 fl (7.4-10.4); NEUTROPHIL # 3.7 10^3/ul (1.6-7.5); NEUTROPHILS % 53.2 % (39.0-77.0); PLATELET COUNT 176 10^3/UL (140-440); RED BLOOD COUNT 3.86 10^6/ul (4.20-5.40); UNCORRECTED WBC 6.9 10^3/ul (4.8-10.8); WHITE BLOOD COUNT 6.9 10^3/ul (4.8-10.8)
[2016-05-10 08:36] LABS: ALBUMIN 3.6 g/dl (3.3-4.9); CONDITION 1; LH ANALYZER COMMENTS 1; POTASSIUM 4.1 mmol/L (3.5-5.1); SUSPECT 1
[2016-05-10 08:39] LABS: ALBUMIN/GLOBULIN RATIO 1.09; BILIRUBIN,INDIRECT 0.6 mg/dl (0-1.1); BILIRUBIN,TOTAL 0.6 mg/dl (0.2-1.3); CREATININE 0.93 mg/dl (0.44-1.00); TOTAL PROTEIN 6.9 g/dl (6.1-8.1)
[2016-05-10 08:40] LABS: CALCIUM 9.4 mg/dl (8.4-10.2)
[2016-05-10] MEDS: ARTIFICIAL TEARS 15 ML OPH BOTH EYES SCH ×3 (08:44→21:33)
[2016-05-10] MEDS: ISOSORBIDE DINITRATE 10 MG TAB PO SCH ×3 (08:45→21:35)
[2016-05-10] MEDS: METOPROLOL 25 MG TAB PO SCH ×2 (08:46→21:35)
[2016-05-10] MEDS: LOSARTAN 25 MG TAB PO SCH ×2 (08:47→21:40)
[2016-05-10] MEDS: SPIRONOLACTONE 25 MG TAB PO SCH ×2 (08:47→21:35)
[2016-05-10] MEDS: POTASSIUM CHLORIDE (SR) 10 MEQ TAB PO SCH ×2 (08:47→21:35)
[2016-05-10] MEDS: METHYLPREDNISOLONE 40 MG INJ IV SCH (08:48)
[2016-05-10] MEDS: ENOXAPARIN 40 MG/0.4 ML SYG SC SCH (08:48)
[2016-05-10] MEDS: AZITHROMYCIN 500MG/NS (PMX) 250 ML IVPB SCH (08:58)
--- NOTE | 2016-05-10 09:00 | CONS ---
Date/Time of Note Date/Time of Note DATE: 05/10/16 TIME: 09:00 Consultation Date/Type/Reason Admit Date/Time May 08, 2016 at 14:19 Exam/Review of Systems Vital Signs Vitals Vital Signs Date Time Temp Pulse Resp B/P Pulse Ox O2 Delivery O2 Flow Rate FiO2 05/10/16 08:56 55 05/10/16 08:09 97.6 18 166/96 100 05/10/16 07:38 Nasal Cannula 2.0 05/09/16 03:06 28 Intake and Output 05/09/16 05/09/16 05/10/16 15:00 23:00 07:00 Intake Total 720 ml 250 ml Output Total 1200 ml 700 ml Balance -480 ml -450 ml Results Result Diagram: 05/10/1620 05/10/1620 Results 24 hrs Laboratory Tests Test 05/09/16 12:30 05/10/16 07:20 Absolute Reticulocyte Count 0.071 Carcinoembryonic Antigen 11.5 H Erythrocyte Sedimentation Rate 23 Ferritin 18.8 Folate > 20.0 H Lactate Dehydrogenase 447 Percent Reticulocyte Count 1.9 H Uric Acid 6.1 Vitamin B12 Level 499 Alanine Aminotransferase (ALT/SGPT) 33 Albumin 3.6 Albumin/Globulin Ratio 1.09 Alkaline Phosphatase 80 Anion Gap 16 Aspartate Amino Transf (AST/SGOT) 38 Basophils # 0.0 Basophils % 0.5 Blood Morphology Comment Blood Urea Nitrogen 31 H Calcium Level 9.4 Carbon Dioxide Level 29 Chloride Level 103 Creatinine 0.93 Direct Bilirubin 0.00 Eosinophils # 0.3 Eosinophils % 4.2 Globulin 3.30 H Glucose Level 123 Hematocrit 36.4 L Hemoglobin 11.9 L Indirect Bilirubin 0.6 Lymphocytes # 1.9 Lymphocytes % 28.1 Mean Corpuscular Hemoglobin 30.8 Mean Corpuscular Hemoglobin Concent 32.7 Mean Corpuscular Volume 94.4 Mean Platelet Volume 10.8 H Monocytes # 1.0 H Monocytes % 14.0 H Neutrophils # 3.7 Neutrophils % 53.2 Nucleated Red Blood Cells # 0.0 Nucleated Red Blood Cells % 0.0 Platelet Count 176 Potassium Level 4.1 Red Blood Count 3.86 L Red Cell Distribution Width 17.0 H Sodium Level 144 Total Bilirubin 0.6 Total Protein 6.9 White Blood Count 6.9 Medications Medications Current Medications Docusate Sodium (Colace) 100 mg Q12H PRN PO CONSTIPATION; Start 05/08/16 at 19: 00 Magnesium Hydroxide (Milk Of Mag) 30 ml DAILY PRN PO CONSTIPATION; Start at 19:00 Zolpidem Tartrate (Ambien) 5 mg QHS PRN PO SLEEP; Start 05/08/16 at 19:00 Enoxaparin Sodium (Lovenox) 40 mg DAILY SC Last administered on 05/09/16 09:37 ; Admin Dose 40 MG; Start 05/08/16 at 19:00 Lorazepam (Ativan) 0.5 mg Q6H PRN IV ANXIETY; Start 05/08/16 at 19:00 Spironolactone (Aldactone) 12.5 mg BID PO Last administered on 05/09/16 21:10; Admin Dose 12.5 MG; Start 05/08/16 at 21:00 Nitroglycerin (Nitroglycerin (Sl Tab) 0.4 Mg) 1 tab Q5M PRN SL CHEST PAIN; Start 05/08/16 at 19:00 Isosorbide Dinitrate (Isordil) 10 mg TID PO Last administered on 05/09/16 21:11 ; Admin Dose 10 MG; Start 05/08/16 at 21:00 Pantoprazole (Protonix Tab) 40 mg DAILY@06 PO Last administered on 05/10/16 05: 24; Admin Dose 40 MG; Start 05/09/16 at 06:00 Eye Lubricant (Artificial Tears Oph) 1 drop TID BOTH EYES Last administered on 05/09/16 21:13; Admin Dose 1 DROP; Start 05/08/16 at 21:00 Morphine Sulfate (morphine) 2 mg Q2H PRN IV PAIN LEVEL 4-6; Start 05/08/16 at 19 :00 Metoprolol Tartrate (Lopressor) 25 mg BID PO Last administered on 05/09/16 21: 13; Admin Dose 25 MG; Start 05/08/16 at 21:00 Losartan Potassium (Cozaar) 25 mg BID PO Last administered on 05/09/16 21:10; Admin Dose 25 MG; Start 05/08/16 at 21:00 Methylprednisolone Sodium Succinate 60 mg 60 mg ONCE ONCE IV ; Start 05/10/16 at 10:53; Stop 05/10/16 at 10:54 Azithromycin (Zithromax 500mg/ NS (Pmx)) 250 ml @ 250 mls/hr Q24H IVPB Last administered on 05/09/16 12:15; Admin Dose 250 MLS/HR; Start 05/09/16 at 08:30; Stop 05/11/16 at 09:00 Potassium Chloride (Klor-Con 10) 10 meq BID PO Last administered on 05/09/16 21 :13; Admin Dose 10 MEQ; Start 05/09/16 at 09:00 Methylprednisolone Sodium Succinate (Solu-Medrol) 40 mg DAILY IV ; Start at 09:00 RASTA EDUARDO MD May 10, 2016 09:00
--- NOTE | 2016-05-10 09:08 | PN ---
Date/Time of Note Date/Time of Note DATE: 05/10/16 TIME: 09:07 Assessment/Plan VTE Prophylaxis VTE Prophylaxis Intervention: ambulation, anti-embolic stocking VTE Contraindication Reason: peripheral vascular disease Lines/Catheters IV Catheter Type (from Nrsg): [place] [employer] line still needed: No Urinary Cath still in place: No Reason Cath still needed: urinary retention Assessment/Plan Assessment/Plan 1)I5042; Chronic combined systolic (congestive) and diastolic (congestive) heart failure-mildly improved 2)I110; Hypertensive heart disease with heart failure -better controlled 3)R001; Bradycardia, unspecified 4)G309; Alzheimer's disease, unspecified 5)D638; ANEMIA 6)M0680; Other specified rheumatoid arthritis, unspecified site 7)R601; Generalized edema 8)R0602; Shortness of breath 9)R32; Unspecified urinary incontinence 11)F419; Anxiety disorder, unspecified 12)Q03514; Tension-type headache, unspecified, not intractable 13)F925-Lydjly pectoris, unspecified 14)G294-KAA 15.Umbilical hernia 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 22.SSS. 23.A. fibrillation-controlled 24.Bradycardia 25.Hx of CVA with dysphagia, dysarthria and memory impairments. Cont'd Hospitalization Reason: chf. Subjective 24 Hr Interval Summary Free Text/Dictation Decreased edema of legs. Left is more swollen. SOB improved. Memory impairment. dysphagia on and off. Constitutional: diaphoresis, disoriented, poor po, requiring O2, No chills, No febrile, No improved, No no complaints, No other, No requiring IVF Eyes: No discharge, No no complaints, No other, No pain, No redness, No visual change ENT: No bleeding, No congestion, No discharge, No dysphagia, No no complaints, No other, No pain, No sore throat Respiratory: cough, pleuritic pain, shortness of breath, No no complaints, No other, No pain, No sputum, No wheezing Cardiovascular: chest pain, edema, lightheadedness, orthopenea, paroxysmal nocturnal dyspnea Gastrointestinal: constipation, decreased appetite, flatus, No blood, No diarrhea, No nausea, No no complaints, No other, No pain, No passing stool, No vomiting Genitourinary: No bleeding, No discharge, No dysuria, No flank pain, No hematuria, No no complaints, No other Musculoskeletal: back pain, bone/joint pain (RA changes with almost total inability to use hands.), neck pain, No no complaints, No other, No restricted range of motion, No swelling Skin: bruising, erythema, pruritis, No laceration, No no complaints, No other, No rash, No skin lesions Neurologic: confusion, dizziness, headache, No focal-weakness, No no complaints, No other, No seizure, No syncope Lymphatic: No adenopathy, No lymphadema, No no complaints, No other, No tender nodes Psychological: anxiety, confusion, depression, No nl mood/affect, No no complaints, No other, No suicidal Immunologic: No immunodeficiency, No no complaints, No other, No pruritis, No rhinitis, No urticaria Exam/Review of Systems Vital Signs Vitals Vital Signs Date Time Temp Pulse Resp B/P Pulse Ox O2 Delivery O2 Flow Rate FiO2 05/10/16 08:56 55 05/10/16 08:09 97.6 18 166/96 100 05/10/16 07:38 Nasal Cannula 2.0 05/09/16 03:06 28 Intake and Output 05/09/16 05/09/16 05/10/16 15:00 23:00 07:00 Intake Total 720 ml 250 ml Output Total 1200 ml 700 ml Balance -480 ml -450 ml Exam Constitutional: alert, distress, frail, oriented, well developed, No non-verbal, No obese, No other Psych: anxiety, confusion, No depression, No nl mood/affect, No no complaints, No other, No suicidal Head: atraumatic, normocephalic, No hematomas, No lacerations, No other Eyes: EOMI, PERRL, nl lids, No fundi, disc, No icteric, No nl conjunctiva, No nl sclera, No other ENMT: No intubated, No mucosa pink and moist, No nl external ears & nose, No nl lips & teeth, No nl nasal mucosa & septum, No other, No tympanic membranes Neck: bruits, jvd, nuchal rigidity, No masses, No non-tender, No other, No supple, No thyromegaly Respiratory: congested cough, diminished breath sounds, No clear to auscultation, No crackles/rales, No intercostal retraction, No labored breathing, No normal air movement, No other, No respirations, No tactile fremitus, No wheezing Cardiovascular: bruits, edema, jugular venous distention (JVD), systolic murmur , No S3, No S4, No diastolic murmur, No gallop, No irregular rhythm, No murmurs /extra sounds, No nl pulses, No other, No regular rate and rhythm, No rub Gastrointestinal: ascites, bowel sounds, distended, hepatomegaly, soft, No firm, No mass, No nl liver, spleen, No non-tender, No other, No rebound or guarding, No splenomegaly, No surgical scars, No tender Genitourinary - Female: No CMT, No CVA tenderness, No nl adnexae, No nl external genitalia, No other, No uterus Musculoskeletal: joint tenderness (rheumatic srtr. changes.), muscle tone, muscle weakness, range of motion, No nl extremities to inspection, No nl gait and stance, No other, No spine non-tender, No swelling Extremities: calf tenderness, normal pulses, tenderness, No clubbing, No cyanosis, No edema, No other, No palpable cord, No pitting pedal edema Neurological: REMELTER II-XII intact, confused, focal weakness, numbness, other ( slurred speeach with dysphagia and forgetfulness.), unresponsive, No DTR's symmetric, No lethargic, No nl mental status, No nl speech, No nl strength, No reflexes Skin: diaphoresis, rash or lesions, No ecchymosis, No laceration, No nl turgor, No other, No puncture Lymph: nl lymph nodes, No enlarged, No nontender, No other Results Result Diagram: 05/10/16 0720 05/10/16 0720 Results 24 hrs Laboratory Tests Test 05/09/16 12:30 05/10/16 07:20 Absolute Reticulocyte Count 0.071 Carcinoembryonic Antigen 11.5 H Erythrocyte Sedimentation Rate 23 Ferritin 18.8 Folate > 20.0 H Lactate Dehydrogenase 447 Percent Reticulocyte Count 1.9 H Uric Acid 6.1 Vitamin B12 Level 499 Alanine Aminotransferase (ALT/SGPT) 33 Albumin 3.6 Albumin/Globulin Ratio 1.09 Alkaline Phosphatase 80 Anion Gap 16 Aspartate Amino Transf (AST/SGOT) 38 Basophils # 0.0 Basophils % 0.5 Blood Morphology Comment Blood Urea Nitrogen 31 H Calcium Level 9.4 Carbon Dioxide Level 29 Chloride Level 103 Creatinine 0.93 Direct Bilirubin 0.00 Eosinophils # 0.3 Eosinophils % 4.2 Globulin 3.30 H Glucose Level 123 Hematocrit 36.4 L Hemoglobin 11.9 L Indirect Bilirubin 0.6 Lymphocytes # 1.9 Lymphocytes % 28.1 Mean Corpuscular Hemoglobin 30.8 Mean Corpuscular Hemoglobin Concent 32.7 Mean Corpuscular Volume 94.4 Mean Platelet Volume 10.8 H Monocytes # 1.0 H Monocytes % 14.0 H Neutrophils # 3.7 Neutrophils % 53.2 Nucleated Red Blood Cells # 0.0 Nucleated Red Blood Cells % 0.0 Platelet Count 176 Potassium Level 4.1 Red Blood Count 3.86 L Red Cell Distribution Width 17.0 H Sodium Level 144 Total Bilirubin 0.6 Total Protein 6.9 White Blood Count 6.9 Medications Medications Current Medications Docusate Sodium (Colace) 100 mg Q12H PRN PO CONSTIPATION; Start 05/08/16 at 19: 00 Magnesium Hydroxide (Milk Of Mag) 30 ml DAILY PRN PO CONSTIPATION; Start at 19:00 Zolpidem Tartrate (Ambien) 5 mg QHS PRN PO SLEEP; Start 05/08/16 at 19:00 Enoxaparin Sodium (Lovenox) 40 mg DAILY SC Last administered on 05/10/16 08:48 ; Admin Dose 40 MG; Start 05/08/16 at 19:00 Lorazepam (Ativan) 0.5 mg Q6H PRN IV ANXIETY; Start 05/08/16 at 19:00 Spironolactone (Aldactone) 12.5 mg BID PO Last administered on 05/10/16 08:47; Admin Dose 12.5 MG; Start 05/08/16 at 21:00 Nitroglycerin (Nitroglycerin (Sl Tab) 0.4 Mg) 1 tab Q5M PRN SL CHEST PAIN; Start 05/08/16 at 19:00 Isosorbide Dinitrate (Isordil) 10 mg TID PO Last administered on 05/10/16 08:45 ; Admin Dose 10 MG; Start 05/08/16 at 21:00 Pantoprazole (Protonix Tab) 40 mg DAILY@06 PO Last administered on 05/10/16 05: 24; Admin Dose 40 MG; Start 05/09/16 at 06:00 Eye Lubricant (Artificial Tears Oph) 1 drop TID BOTH EYES Last administered on 05/10/16 08:44; Admin Dose 1 DROP; Start 05/08/16 at 21:00 Morphine Sulfate (morphine) 2 mg Q2H PRN IV PAIN LEVEL 4-6; Start 05/08/16 at 19 :00 Metoprolol Tartrate (Lopressor) 25 mg BID PO Last administered on 05/10/16 08: 46; Admin Dose 25 MG; Start 05/08/16 at 21:00 Losartan Potassium (Cozaar) 25 mg BID PO Last administered on 05/10/16 08:47; Admin Dose 25 MG; Start 05/08/16 at 21:00 Methylprednisolone Sodium Succinate 60 mg 60 mg ONCE ONCE IV ; Start 05/10/16 at 10:53; Stop 05/10/16 at 10:54 Azithromycin (Zithromax 500mg/ NS (Pmx)) 250 ml @ 250 mls/hr Q24H IVPB Last administered on 05/10/16 08:58; Admin Dose 250 MLS/HR; Start 05/09/16 at 08:30; Stop 05/11/16 at 09:00 Potassium Chloride (Klor-Con 10) 10 meq BID PO Last administered on 05/10/16 08 :47; Admin Dose 10 MEQ; Start 05/09/16 at 09:00 Methylprednisolone Sodium Succinate (Solu-Medrol) 40 mg DAILY IV Last administered on 05/10/16 08:48; Admin Dose 40 MG; Start 05/10/16 at 09:00 WALI LIU MD May 10, 2016 09:08
[2016-05-10] MEDS ORDERED: METHYLPREDNISOLONE 125 MG INJ IV ONE (10:53)
--- NOTE | 2016-05-10 12:58 | RADRPT ---
PROCEDURE: CT scan of the abdomen and pelvis without IV contrast. CLINICAL INDICATION: Kidney mass seen on abdominal sonogram. TECHNIQUE: Thin section axial, coronal and sagittal images were performed through the abdomen and pelvis without contrast. Radiation Dose: CTDI: 18.45 and DLP: 1041.2. One or more of the following dose reduction techniques were used: - Automated exposure control. - Adjustment of the mA and/or kV according to patient size. Use of iterative reconstruction technique. COMPARISON: Chest x-ray 05/05/2016 06:18 a.m. FINDINGS: Soft tissues: There is diffuse anasarca.. Lungs and pleural spaces: There is minimal compressive atelectasis in the right and left lower lobes . There are small pleural effusions or right is larger than the left. Heart: The heart is enlarged. No pericardial effusion is present. There are vascular calcification s in the coronary arteries. The liver, common bile duct and gallbladder: The liver is normal in size measuring 14.8 cm AP. No h epatic mass or intrahepatic biliary ductal dilatation is identified. There is a gallstone in the ga llbladder. There is no evidence of gallbladder wall thickening. Gastrointestinal: Fluid and particulate matter and some contrast material noted in the stomach. The small bowel loops have a normal caliber. There are diverticula in the sigmoid colon. There is no evidence of diverticulitis or appendicitis. The vermiform appendix is normal. There is a midline u mbilical hernia measuring 2.5 x 3 cm. The neck of the hernia measures 1.7 cm. Pancreas: There is fatty replacement of the pancreas. No pancreatic mass is identified. The extrah epatic common bile duct is normal. Kidneys, bladder and adrenal glands : The adrenal glands are normal. Kidneys are unremarkable. No renal masses identified. There is prominent pararenal fat. There is no evidence of a solid mass or hydronephrosis. Urinary bladder is normal. There is no bladder wall thickening or no bladder ston e. Spleen: The spleen is normal. Lymph nodes: No enlarged periportal, retroperitoneal, mesenteric, pelvic sidewall or inguinal lymph nodes are identified. Some fluid is noted in the right inguinal canal. There is that the left and right inguinal canals but no intra-abdominal. Reproductive system and pelvis : The uterus is normal for age. No uterine are abnormal adnexal mass is identified. No free fluid is noted in the pelvis. Bony elements: There are degenerative changes in both hips. There are mild degenerative changes in the SI joints. There are degenerative osteophytes in the lower thoracic and lumbar spine. No bone metastasis or acute bony fracture is identified. Vasculature: Atherosclerotic calcifications are noted in the coronary arteries, abdominal aorta, pro ximal renal arteries, superior mesenteric artery, common iliac arteries, internal and external iliac and common femoral arteries per there is no evidence of an aneurysm. IMPRESSION: 1. There is note using evidence of a renal mass or hydronephrosis. A contrast-enhanced CT scan wou ld be more sensitive in the detection of a renal mass and can be considered for further evaluation i f clinically indicated. 2. Anasarca. 3. Atherosclerotic vascular disease. 4. There are small pleural effusion the right larger than the left with ground-glass infiltrates in the bases of the lungs suspicious for atelectasis. 5. No midline umbilical hernia measuring 3.1 cm transverse by 2.4 cm AP with the neck of the hernia measuring 1.7 cm. 5. There are bilateral inguinal hernias containing fat with some fluid noted in the right inguinal hernia. RPTAT:AAJJ Physician Bunny Date Time Electronically viewed and signed by Physician Bunny on 05/10/2016 12:58 /
--- NOTE | 2016-05-10 16:06 | CONS ---
Date/Time of Note Date/Time of Note DATE: 05/10/16 TIME: 16:03 Consult Date/Type/Reason Admit Date/Time May 08, 2016 at 14:19 Initial Consult Date Type of Consultation: Pulm Subjective Doing ok this morning. No shortness of breath. Objective Vital Signs Date Time Temp Pulse Resp B/P Pulse Ox O2 Delivery O2 Flow Rate FiO2 05/10/16 15:49 98.2 75 18 155/74 97 05/10/16 14:28 2.0 05/10/16 14:26 Nasal Cannula 05/09/16 03:06 28 Intake and Output 05/09/16 05/09/16 05/10/16 15:00 23:00 07:00 Intake Total 720 ml 250 ml Output Total 1200 ml 700 ml Balance -480 ml -450 ml PHYSICAL EXAMINATION: GENERAL: Elderly-appearing Malian lady, comfortable at rest, no acute distress. VITAL SIGNS: NECK: Supple. No JVD or lymphadenopathy. CARDIAC: S1, S2, no added sounds or murmurs. CHEST: Diminished air entry bilaterally. ABDOMEN: Soft, nontender. No guarding or rebound. EXTREMITIES: No cyanosis, clubbing, edema. NEUROLOGIC: Grossly intact. No focal deficits. Results/Medications Result Diagram: 05/10/16 0720 05/10/16 0720 Results 24 hrs Laboratory Tests Test 05/10/16 07:20 Alanine Aminotransferase (ALT/SGPT) 33 Albumin 3.6 Albumin/Globulin Ratio 1.09 Alkaline Phosphatase 80 Anion Gap 16 Aspartate Amino Transf (AST/SGOT) 38 Basophils # 0.0 Basophils % 0.5 Blood Morphology Comment Blood Urea Nitrogen 31 H Calcium Level 9.4 Carbon Dioxide Level 29 Chloride Level 103 Creatinine 0.93 Direct Bilirubin 0.00 Eosinophils # 0.3 Eosinophils % 4.2 Free Thyroxine 1.48 Globulin 3.30 H Glucose Level 123 Hematocrit 36.4 L Hemoglobin 11.9 L Indirect Bilirubin 0.6 Lymphocytes # 1.9 Lymphocytes % 28.1 Mean Corpuscular Hemoglobin 30.8 Mean Corpuscular Hemoglobin Concent 32.7 Mean Corpuscular Volume 94.4 Mean Platelet Volume 10.8 H Monocytes # 1.0 H Monocytes % 14.0 H Neutrophils # 3.7 Neutrophils % 53.2 Nucleated Red Blood Cells # 0.0 Nucleated Red Blood Cells % 0.0 Platelet Count 176 Potassium Level 4.1 Red Blood Count 3.86 L Red Cell Distribution Width 17.0 H Sodium Level 144 Thyroid Stimulating Hormone (TSH) 2.580 Total Bilirubin 0.6 Total Protein 6.9 White Blood Count 6.9 Medications Current Medications Docusate Sodium (Colace) 100 mg Q12H PRN PO CONSTIPATION; Start 05/08/16 at 19: 00 Magnesium Hydroxide (Milk Of Mag) 30 ml DAILY PRN PO CONSTIPATION; Start at 19:00 Zolpidem Tartrate (Ambien) 5 mg QHS PRN PO SLEEP; Start 05/08/16 at 19:00 Enoxaparin Sodium (Lovenox) 40 mg DAILY SC Last administered on 05/10/16 08:48 ; Admin Dose 40 MG; Start 05/08/16 at 19:00 Lorazepam (Ativan) 0.5 mg Q6H PRN IV ANXIETY; Start 05/08/16 at 19:00 Spironolactone (Aldactone) 12.5 mg BID PO Last administered on 05/10/16 08:47; Admin Dose 12.5 MG; Start 05/08/16 at 21:00 Nitroglycerin (Nitroglycerin (Sl Tab) 0.4 Mg) 1 tab Q5M PRN SL CHEST PAIN; Start 05/08/16 at 19:00 Isosorbide Dinitrate (Isordil) 10 mg TID PO Last administered on 05/10/16 13:01 ; Admin Dose 10 MG; Start 05/08/16 at 21:00 Pantoprazole (Protonix Tab) 40 mg DAILY@06 PO Last administered on 05/10/16 05: 24; Admin Dose 40 MG; Start 05/09/16 at 06:00 Eye Lubricant (Artificial Tears Oph) 1 drop TID BOTH EYES Last administered on 05/10/16 13:01; Admin Dose 1 DROP; Start 05/08/16 at 21:00 Morphine Sulfate (morphine) 2 mg Q2H PRN IV PAIN LEVEL 4-6; Start 05/08/16 at 19 :00 Losartan Potassium 25 mg 25 mg BID PO Last administered on 05/10/16 08:47; Admin Dose 25 MG; Start 05/08/16 at 21:00 Azithromycin (Zithromax 500mg/ NS (Pmx)) 250 ml @ 250 mls/hr Q24H IVPB Last administered on 05/10/16 08:58; Admin Dose 250 MLS/HR; Start 05/09/16 at 08:30; Stop 05/11/16 at 09:00 Potassium Chloride (Klor-Con 10) 10 meq BID PO Last administered on 05/10/16 08 :47; Admin Dose 10 MEQ; Start 05/09/16 at 09:00 Methylprednisolone Sodium Succinate (Solu-Medrol) 40 mg DAILY IV Last administered on 05/10/16 08:48; Admin Dose 40 MG; Start 05/10/16 at 09:00 Metoprolol Tartrate (Lopressor) 12.5 mg BID PO ; Start 05/10/16 at 21:00 Assessment/Plan Chief Complaint/Hosp Course IMPRESSION AND PLAN: 1. Dyspnea, likely secondary to mild congestive cardiac failure. 2. Possible acute bronchitis. 3. History of dementia. 4. Incomplete data. The patient will require: 1. Continued steroids. 2. Bronchodilators. 3. Additional Lasix. 4. Aspiration precautions. 5. DVT and GI prophylaxis. Problems: ISATU MORENO MD, [facility] May 10, 2016 16:05
[2016-05-11] VITALS (11 sets, daily range): BP systolic 116–169; BP diastolic 57–81; PULSE 50–72; RESP 16–20
[2016-05-11] MEDS: PANTOPRAZOLE (EC) 40 MG TAB PO SCH (06:32)
[2016-05-11] MEDS: METOLAZONE 2.5 MG TAB PO SCH ×2 (06:35→17:21)
[2016-05-11] MEDS: AZITHROMYCIN 500MG/NS (PMX) 250 ML IVPB SCH (08:52)
[2016-05-11] MEDS: ISOSORBIDE DINITRATE 10 MG TAB PO SCH ×2 (08:53→12:40)
[2016-05-11] MEDS: METOPROLOL 25 MG TAB PO SCH (08:53)
[2016-05-11] MEDS: LOSARTAN 25 MG TAB PO SCH (08:53)
[2016-05-11] MEDS: SPIRONOLACTONE 25 MG TAB PO SCH (08:56)
[2016-05-11] MEDS: POTASSIUM CHLORIDE (SR) 10 MEQ TAB PO SCH (08:56)
[2016-05-11] MEDS: METHYLPREDNISOLONE 40 MG INJ IV SCH (08:56)
[2016-05-11] MEDS: ARTIFICIAL TEARS 15 ML OPH BOTH EYES SCH ×2 (08:56→12:40)
[2016-05-11] MEDS: IPRATROPIUM (NEB) 0.5 MG/2.5 ML AMP HHN SCH ×2 (08:58→13:21)
[2016-05-11] MEDS: ALBUTEROL 0.083% (NEB) 2.5 MG/3 ML AMP HHN SCH ×2 (08:58→13:21)
[2016-05-11] MEDS: ENOXAPARIN 40 MG/0.4 ML SYG SC SCH (09:11)
--- NOTE | 2016-05-11 09:33 | RADRPT ---
Echocardiogram Report Patient Name: BEBETO THOMPSON Gender: Female Date: 1935 Study Date: 10-May-2016 Special Delivery Messenger: Petros Hernandez RDCS Location: EKG Ref. Physician: JOSE ENRIQUE RICO Quality: Good Procedures: Transthoracic echocardiogram with complete 2D, M-Mode, and doppler examination. Indications: Congestive Heart Failure. 2D/M Mode Doppler Measurement Value Normal Ranges Measurement Value Normal Ranges LVIDd 2D 5.3 3.5 - 5.6 cm AV Peak Santos 1.4 m/sec LVIDs 2D 3.8 2.1 - 4.1 cm AV Peak PG 7.4 mmHg LVPWd 2D 1.0 0.6 - 1.1 cm LVOT Peak Santos 0.7 m/sec IVSd 2D 1.2 0.6 - 1.1 cm LVOT Peak PG 1.7 mmHg AoR Diam 2D 2.8 2.0 - 3.7 cm MV E Peak Santos 0.8 m/sec EDV 2D 134.9 cm3 MV A Peak Santos 0.4 m/sec ESV 2D 56.8 cm3 MV E/A 2.1 LA Dimen 2D 4.1 2.3 - 4.0 cm MV Decel Time 210 msec MV Decel Inyo 4 MV E/A 2.1 TR Peak Santos 3.2 m/sec TR Peak PG 39.9 mmHg RVSP 55.0 mmHg Findings Left Ventricle: Normal left ventricular cavity size. Mild concentric left ventricular hypertrophy. Severe global left ventricular systolic dysfunction. Ejection fraction is visually estimated at 25 %. Tissue Doppler/Mitral Doppler indices are consistent with restrictive physiology with markedly elevated left atrial pressure (Stage IIIIV diastolic dysfunction). Right Ventricle: Mild enlargement of right ventricle. Moderate right ventricular hypokinesis. Left Atrium: There is mild enlargement of left atrium. Right Atrium: There is moderate enlargement of right atrium. Mitral Valve: Mitral valve leaflets appear mildly thickened. Moderate mitral annular calcification. Moderate mitral valve regurgitation. The regurgitation jet is eccentrically directed which may underestimate the severity of mitral regurgitation. Aortic Valve: No hemodynamically significant aortic stenosis by doppler. Aortic cusps appear mildly calcified. Trace aortic valve regurgitation. Tricuspid Valve: Normal appearance of the tricuspid valve. Estimated peak PA systolic pressure 55 mmHg. There is mild to moderate tricuspid regurgitation. Pulmonic Valve: Pulmonic valve not well visualized. There is mild pulmonic regurgitation. Pericardium: Normal pericardium with no significant pericardial effusion. Aorta: Normal aortic root. IVC: Dilated IVC without respiratory collapse consistent with elevated right atrial pressure. Conclusions 1.Normal left ventricular cavity size. Mild concentric left ventricular hypertrophy. Severe global left ventricular systolic dysfunction. Ejection fraction is visually estimated at 25 %. Tissue Doppler/Mitral Doppler indices are consistent with restrictive physiology with markedly elevated left atrial pressure (Stage III-IV diastolic dysfunction). 2.There is mild enlargement of left atrium. 3.There is moderate enlargement of right atrium. 4.Mitral valve leaflets appear mildly thickened. Moderate mitral annular calcification. Moderate mitral valve regurgitation. The regurgitation jet is eccentrically directed which may underestimate the severity of mitral regurgitation. 5.No hemodynamically significant aortic stenosis by doppler. Aortic cusps appear mildly calcified. Trace aortic valve regurgitation. 6.Normal appearance of the tricuspid valve. Estimated peak PA systolic pressure 55 mmHg. There is mild to moderate tricuspid regurgitation. 7.Dilated IVC without respiratory collapse consistent with elevated right atrial pressure. Electronically Signed By: Jose Enrique Rico 11-May-2016 09:33:15 -0800 Patient Name: BEBETO THOMPSON Study Date: 10-May-2016 [id number]
[2016-05-11] MEDS ORDERED: FUROSEMIDE 20 MG INJ IV ONE (10:30)
--- NOTE | 2016-05-11 11:37 | RADRPT ---
PROCEDURE: XR Chest. CLINICAL INDICATION: CHF TECHNIQUE: Single frontal chest x-ray. COMPARISON: 05/08/2016 FINDINGS: No acute infiltrate, pleural effusion or pneumothorax is identified. Mild pulmonary vascular conges tion is noted. There is stable mild to moderate cardiomegaly. Aortic atherosclerotic calcification is noted. The osseous structures are unremarkable. IMPRESSION: 1. Mild pulmonary vascular congestion, slightly increased when compared to the prior x-ray. 2. Stable mild to moderate cardiomegaly and aortic atherosclerosis. RPTAT: QQ .Mainor Underwood MD, MD Date Time Electronically viewed and signed by .Mainor Underwood MD, MD on 05/11/2016 11:37 .R/
--- NOTE | 2016-05-11 11:37 | CONS ---
DATE OF ADMISSION: 05/08/2016 DATE OF CONSULTATION: 05/11/2016 TYPE OF CONSULTATION: Cardiology. REFERRING PHYSICIAN: Wali Liu MD REASON FOR CONSULTATION: Bradycardia. CHIEF COMPLAINT: Cough, shortness of breath. HISTORY OF PRESENT ILLNESS: Thank you for this referral. History obtained from the patient, yaniv aviles with her son. This is a pleasant 81-year-old female with history of CVA, atrial fibrillation w eliecer came to emergency room with above complaint. The patient denies any chest pain or pressure to me . Has some back pain. She has had mostly shortness of breath and been treated for it. On the hollis tor, she was noted to have marked bradycardia around the 50s and 60s, and in atrial fibrillation. W e were kindly asked to evaluate and treat. PAST MEDICAL HISTORY: History of cerebrovascular accident, history of atrial fibrillation, history of hypertension, history of dyslipidemia. It is unclear if the patient has had a history of coronar y artery disease or not. FAMILY HISTORY: No reported early coronary artery disease. ALLERGIES: NO REPORTED ALLERGIES. MEDICATIONS: As per medical reconciliation. Her list of home medication include: 1. Xarelto 2. Lipitor. 3. Coreg 12.5. 4. Losartan 75. 5. Lovaza. 6. Lasix 40 mg daily. 4. Potassium. 5. Magnesium. REVIEW OF SYSTEMS: She denied all except for above mentioned. PHYSICAL EXAMINATION: VITAL SIGNS: Temperature 97.5, heart rate of 60, blood pressure 116/64, respiration rate of 20, sat urating 97%. HEENT: Normocephalic, atraumatic. Pupils are equal. CARDIOVASCULAR: Irregularly irregular, systolic murmur. PULMONARY: With no wheezes, positive for rhonchi at the base. GASTROINTESTINAL: Soft, nontender. EXTREMITIES: Positive lower extremity edema. NEUROLOGIC: Awake, responds appropriately. PSYCHIATRIC: Appears to be calm, very pleasant. DIAGNOSTIC DATA: Echocardiogram was personally reviewed, which showed ejection fraction about 25% t o 30%. LABORATORY: Sodium 144, potassium 4.1, BUN of 31, creatinine 0.93, glucose 123. WBC of 6.9, hemogl obin 11.9, platelet 176. IMAGING: Chest x-ray on admission shows no significant interval change, small to mild cardiomegaly. ASSESSMENT AND PLAN: 1. Congestive heart failure, acute on chronic secondary to systolic dysfunction and severe cardiomy opathy, unclear etiology. 2. History of cerebrovascular accident. 3. Atrial fibrillation with sick sinus syndrome and marked bradycardia. RECOMMENDATIONS: I will start the patient on metoprolol and put her back on carvedilol at a lower d ose. The patient has been placed on metolazone. Lovenox will be stopped and Xarelto will be resume d again. We will try to get old records including [place] echocardiogram record. Continue to monitor on telemetry. Dictated By: JOSE ENRIQUE CHAMBERS MD AV/NTS Conf#: [id number] DID#: [id number] CC: WALI LIU MD;*[facility]*
--- NOTE | 2016-05-11 11:49 | RADRPT ---
Vent Rate: 66 bpm RR Interval: 0 msec GA Interval: 0 msec QRS Duration: 106 msec QT Interval: 436 msec QTC Interval: 457 msec P-R-T [place]: 0 - 78 - 0 degrees Atrial fibrillation Marked ST abnormality, possible inferior subendocardial injury Abnormal ECG Electronically Signed By: Ernst Trivedi [id number]
--- NOTE | 2016-05-11 12:08 | CONS ---
Date/Time of Note Date/Time of Note DATE: 05/11/16 TIME: 12:08 Consultation Date/Type/Reason Admit Date/Time May 08, 2016 at 14:19 [facility] Systems Vital Signs Vitals Vital Signs Date Time Temp Pulse Resp B/P Pulse Ox O2 Delivery O2 Flow Rate FiO2 05/11/16 11:46 97.7 61 20 126/59 95 05/11/16 10:22 Nasal Cannula 2.0 05/09/16 03:06 28 Intake and Output 05/10/16 05/10/16 05/11/16 15:00 23:00 07:00 Intake Total 900 ml Output Total 700 ml Balance 200 ml Results Result Diagram: 05/10/1671905/10/16 0720 Medications Medications Current Medications Docusate Sodium (Colace) 100 mg Q12H PRN PO CONSTIPATION; Start 05/08/16 at 19: 00 Magnesium Hydroxide (Milk Of Mag) 30 ml DAILY PRN PO CONSTIPATION; Start at 19:00 Zolpidem Tartrate (Ambien) 5 mg QHS PRN PO SLEEP Last administered on 05/10/16 23:04; Admin Dose 5 MG; Start 05/08/16 at 19:00 Lorazepam (Ativan) 0.5 mg Q6H PRN IV ANXIETY; Start 05/08/16 at 19:00 Spironolactone (Aldactone) 12.5 mg BID PO Last administered on 05/11/16 08:56; Admin Dose 12.5 MG; Start 05/08/16 at 21:00 Nitroglycerin (Nitroglycerin (Sl Tab) 0.4 Mg) 1 tab Q5M PRN SL CHEST PAIN; Start 05/08/16 at 19:00 Isosorbide Dinitrate (Isordil) 10 mg TID PO Last administered on 05/11/16 08:53 ; Admin Dose 10 MG; Start 05/08/16 at 21:00 Pantoprazole (Protonix Tab) 40 mg DAILY@06 PO Last administered on 05/11/16 06: 32; Admin Dose 40 MG; Start 05/09/16 at 06:00 Eye Lubricant (Artificial Tears Oph) 1 drop TID BOTH EYES Last administered on 05/11/16 08:56; Admin Dose 1 DROP; Start 05/08/16 at 21:00 Morphine Sulfate (morphine) 2 mg Q2H PRN IV PAIN LEVEL 4-6; Start 05/08/16 at 19 :00 Losartan Potassium (Cozaar) 25 mg BID PO Last administered on 05/11/16 08:53; Admin Dose 25 MG; Start 05/08/16 at 21:00 Potassium Chloride (Klor-Con 10) 10 meq BID PO Last administered on 05/11/16 08 :56; Admin Dose 10 MEQ; Start 05/09/16 at 09:00 Methylprednisolone Sodium Succinate (Solu-Medrol) 40 mg DAILY IV Last administered on 05/11/16 08:56; Admin Dose 40 MG; Start 05/10/16 at 09:00 Carvedilol (Coreg) 3.125 mg BID PO ; Start 05/11/16 at 21:00 RASTA EDUARDO MD May 11, 2016 12:08
--- NOTE | 2016-05-11 12:58 | CONS ---
Date/Time of Note Date/Time of Note DATE: 05/11/16 TIME: 12:57 Consult Date/Type/Reason Admit Date/Time May 08, 2016 at 14:19 Type of Consultation: pulmonary Subjective No new events patient remains stable this morning Objective Vital Signs Date Time Temp Pulse Resp B/P Pulse Ox O2 Delivery O2 Flow Rate FiO2 05/11/16 11:46 97.7 61 20 126/59 95 05/11/16 10:22 Nasal Cannula 2.0 05/09/16 03:06 28 Intake and Output 05/10/16 05/10/16 05/11/16 15:00 23:00 07:00 Intake Total 900 ml Output Total 700 ml Balance 200 ml PHYSICAL EXAMINATION: GENERAL: Elderly-appearing Arabic lady, comfortable at rest, no acute distress. VITAL SIGNS: NECK: Supple. No JVD or lymphadenopathy. CARDIAC: S1, S2, no added sounds or murmurs. CHEST: Diminished air entry bilaterally. ABDOMEN: Soft, nontender. No guarding or rebound. EXTREMITIES: No cyanosis, clubbing, edema. NEUROLOGIC: Grossly intact. No focal deficits. Results/Medications Result Diagram: 05/10/1671905/10/16719 Medications Current Medications Docusate Sodium (Colace) 100 mg Q12H PRN PO CONSTIPATION; Start 05/08/16 at 19: 00 Magnesium Hydroxide (Milk Of Mag) 30 ml DAILY PRN PO CONSTIPATION; Start at 19:00 Zolpidem Tartrate (Ambien) 5 mg QHS PRN PO SLEEP Last administered on 05/10/16 23:04; Admin Dose 5 MG; Start 05/08/16 at 19:00 Lorazepam (Ativan) 0.5 mg Q6H PRN IV ANXIETY; Start 05/08/16 at 19:00 Spironolactone (Aldactone) 12.5 mg BID PO Last administered on 05/11/16 08:56; Admin Dose 12.5 MG; Start 05/08/16 at 21:00 Nitroglycerin (Nitroglycerin (Sl Tab) 0.4 Mg) 1 tab Q5M PRN SL CHEST PAIN; Start 05/08/16 at 19:00 Isosorbide Dinitrate (Isordil) 10 mg TID PO Last administered on 05/11/16 12:40 ; Admin Dose 10 MG; Start 05/08/16 at 21:00 Pantoprazole (Protonix Tab) 40 mg DAILY@06 PO Last administered on 05/11/16 06: 32; Admin Dose 40 MG; Start 05/09/16 at 06:00 Eye Lubricant (Artificial Tears Oph) 1 drop TID BOTH EYES Last administered on 05/11/16 12:40; Admin Dose 1 DROP; Start 05/08/16 at 21:00 Morphine Sulfate (morphine) 2 mg Q2H PRN IV PAIN LEVEL 4-6; Start 05/08/16 at 19 :00 Losartan Potassium (Cozaar) 25 mg BID PO Last administered on 05/11/16 08:53; Admin Dose 25 MG; Start 05/08/16 at 21:00 Potassium Chloride (Klor-Con 10) 10 meq BID PO Last administered on 05/11/16 08 :56; Admin Dose 10 MEQ; Start 05/09/16 at 09:00 Methylprednisolone Sodium Succinate (Solu-Medrol) 40 mg DAILY IV Last administered on 05/11/16 08:56; Admin Dose 40 MG; Start 05/10/16 at 09:00 Carvedilol (Coreg) 3.125 mg BID PO ; Start 05/11/16 at 21:00 Assessment/Plan Chief Complaint/Hosp Course IMPRESSION AND PLAN: 1. Dyspnea, likely secondary to mild congestive cardiac failure. Chest x-ray shows ongoing CHF 2. Possible acute bronchitis. 3. History of dementia. 4. Incomplete data. The patient will require: 1. Continued steroids. Steroid taper 2. Bronchodilators. 3. Continue diuretics consider increasing 4. Aspiration precautions. 5. DVT and GI prophylaxis. Problems: IS[facility]U MORENO MD, [facility] May 11, 2016 12:58
[2016-05-11] MEDS ORDERED: CARV12.579 PO (14:30)
[2016-05-11] MEDS ORDERED: OMEG1CAP2 PO (14:30)
[2016-05-11] MEDS ORDERED: LEFL20TA18 PO (14:30)
[2016-05-11] MEDS ORDERED: LOSA25TA5 PO (14:30)
[2016-05-11] MEDS ORDERED: CHOL100062 PO (14:30)
[2016-05-11] MEDS ORDERED: MAGN400T28 PO (14:30)
[2016-05-11] MEDS ORDERED: ATOR10TA65 PO (14:30)
[2016-05-11] MEDS ORDERED: POTA8CAP PO (14:30)
[2016-05-11] MEDS ORDERED: RIVA20TA PO (14:30)
--- NOTE | 2016-05-11 14:37 | DS ---
Date/Time of Note Date/Time of Note DATE: 05/11/16 TIME: 14:21 Discharge Summary Admission/Discharge Info Admit Date/Time May 08, 2016 at 14:19 Discharge Date/Time May 112016. Final Diagnosis 1)I5042; Chronic combined systolic (congestive) and diastolic (congestive) heart failure-mildly improved 2)I110; Hypertensive heart disease with heart failure -better controlled 3)R001; Bradycardia, unspecified 4)G309; Alzheimer's disease, unspecified 5)D638; ANEMIA 6)M0680; Other specified rheumatoid arthritis, unspecified site 7)R601; Generalized edema 8)R0602; Shortness of breath 9)R32; Unspecified urinary incontinence 11)F419; Anxiety disorder, unspecified 12)[id number]; Tension-type headache, unspecified, not intractable 13)Z053-Fxvwua pectoris, unspecified 14)O960-AWP 15.Umbilical hernia 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 22.SSS. 23.A. fibrillation-controlled 24.Bradycardia 25.Hx of CVA with dysphagia, dysarthria and memory impairments. Patient Condition: Fair Hx of Present Illness S/P worsening of sob and edema of legs.Improving. Hospital Course IMPRESSION AND PLAN: 1. Dyspnea, likely secondary to mild congestive cardiac failure. Chest x-ray shows ongoing CHF 2. Possible acute bronchitis. 3. History of dementia. 4. Incomplete data. The patient will require: 1. Continued steroids. Steroid taper 2. Bronchodilators. 3. Continue diuretics consider increasing 4. Aspiration precautions. 5. DVT and GI prophylaxis. Home Meds Active Scripts Carvedilol* (Carvedilol*) 12.5 Mg Tablet, 12.5 MG PO BID for 30 Days, #60 TAB Prov:WALI LIU MD 05/11/16 Leflunomide* (Leflunomide*) 20 Mg Tablet, 20 MG PO DAILY for 30 Days, #30 TAB Prov:WALI LIU MD 05/11/16 Atorvastatin Calcium (Atorvastatin Calcium) 10 Mg Tablet, 10 MG PO QHS for 30 Days, #30 TAB Prov:WALI LIU MD 05/11/16 Potassium Chloride* (Potassium Chloride*) 8 Meq Capsule.er, 8 MEQ PO DAILY for 30 Days, #30 CAP Prov:WALI LIU MD 05/11/16 Magnesium Oxide* (Magnesium Oxide*) 400 Mg Tablet, 400 MG PO DAILY for 30 Days, #60 TAB Prov:WALI LIU MD 05/11/16 [place]-3 Acid Ethyl Esters (Lovaza) 1 Gm Capsule, 2 GM PO DAILY for 30 Days, #30 CAP Prov:WALI LIU MD 05/11/16 Losartan Potassium* (Losartan Potassium*) 25 Mg Tablet, 75 MG PO DAILY for 30 Days, #30 TAB Prov:WALI LIU MD 05/11/16 Cholecalciferol* (Vitamin D3*) 1,000 Unit Tablet, 25 UNIT PO weekly, #4 TAB Prov:WALI LIU MD 05/11/16 Rivaroxaban* (Xarelto*) 20 Mg Tablet, 20 MG PO WITH DINNER for 30 Days, #30 TAB Prov:WALI LIU MD 05/11/16 Furosemide* (Lasix*) 40 Mg Tablet, 40 MG PO DAILY, #20 TAB Prov:RE RODGERS 03/14/16 Follow-up Plan 5 days to . WALI LIU MD May 11, 2016 14:32
[2016-05-11] MEDS ORDERED: PANT40TA4 PO (14:52)
[2016-05-11] MEDS ORDERED: LORA2VIA3 PO (14:52)
[2016-05-11] MEDS ORDERED: ALBU2.5V3 HHN (14:52)
[2016-05-11] MEDS ORDERED: SPIR25TA PO (14:52)
[2016-05-11] MEDS ORDERED: NIT4 SL (14:52)
[2016-05-11] MEDS ORDERED: [UNRECOGNIZED DRUG - OTHER] BOTH EYES (14:52)
[2016-05-11] MEDS ORDERED: DOCU-216 PO (14:52)
[2016-05-11] MEDS ORDERED: UDMOM PO (14:52)
[2016-05-11] MEDS ORDERED: CARV3.1260 PO (14:52)
[2016-05-11] MEDS ORDERED: Ipratropium 0.02% (Neb) HHN (14:52)
[2016-05-11] MEDS ORDERED: MET40I PO (14:52)
[2016-05-11] MEDS ORDERED: LOSA25TA2 PO (14:52)
[2016-05-11] MEDS ORDERED: ZOLP5TAB PO (14:52)
[2016-05-11] MEDS ORDERED: METO2.5T12 PO (14:52)
[2016-05-11] MEDS ORDERED: ISOS10TA2 PO (14:52)
[2016-05-11] MEDS ORDERED: RIVA15TA PO (14:52)
[2016-05-11] MEDS ORDERED: POTA10TA15 PO (14:52)
[2016-05-11] MEDS ORDERED: RIVAROXABAN 15 MG TABLET PO SCH (18:05)
== END 2016-05-11 20:00 | disposition home or self-care (01) ==
LOC: E/R 08:56 → INTOOBSV 14:19 → MS4 14:19
PROVIDERS: ADMIT Family Medicine; ATTEND Family Medicine
DX: I11.0 Hypertensive heart disease with heart failure (principal); I50.42 Chronic combined systolic (congestive) and diastolic (congestive) heart failure; R00.1 Bradycardia, unspecified; G30.9 Alzheimer's disease, unspecified; F02.80 Dementia in other diseases classified elsewhere, unspecified severity, without behavioral disturbance, psychotic disturbance, mood disturbance, and anxiety; D64.9 Anemia, unspecified; M06.80 Other specified rheumatoid arthritis, unspecified site; R60.1 Generalized edema; R06.02 Shortness of breath; R32 Unspecified urinary incontinence; F41.9 Anxiety disorder, unspecified; G44.209 Tension-type headache, unspecified, not intractable; I20.9 Angina pectoris, unspecified; N39.0 Urinary tract infection, site not specified; K42.9 Umbilical hernia without obstruction or gangrene; M47.818 Spondylosis without myelopathy or radiculopathy, sacral and sacrococcygeal region; K40.90 Unilateral inguinal hernia, without obstruction or gangrene, not specified as recurrent; K80.20 Calculus of gallbladder without cholecystitis without obstruction; I27.2 Other secondary pulmonary hypertension; I25.5 Ischemic cardiomyopathy; I49.5 Sick sinus syndrome; I48.91 Unspecified atrial fibrillation; I69.391 Dysphagia following cerebral infarction; I69.322 Dysarthria following cerebral infarction; I69.311 Memory deficit following cerebral infarction; R13.10 Dysphagia, unspecified
CPT/HCPCS: 36600; 71010; 74176; 80053; 80061; 82306; 82378; 82607; 82728; 82746; 82803; 83036; 83540; 83615; 83735; 83880; 84100; 84436; 84439; 84443; 84479; 84484; 84560; 85025; 85045; 85378; 85651; 87040; 92610; 93005; 93306; 93970; 94640; 94644; 94664; 96372; 96374; 96375; 97110; 97116; 97162; 97530; 99285; G0378; G8996; G8997; G8998; J0456; J0696; J1650; J1940; J2920; J2930; J7030; J7050